=== PATIENT | male | born 1965 | race Two or more races ===

== ENCOUNTER 2018-04-24 15:15 | Emergency (ER) | payer SELFPAY ==
[~2018-04-24] VITALS: Ht 170.2 cm; Wt 87.0 kg
[2018-04-24 15:25] VITALS: BP 108/65
== END 2018-04-24 19:20 | disposition left against medical advice (07) ==
LOC: ER 15:15
DX: Z53.21 Procedure and treatment not carried out due to patient leaving prior to being seen by health care provider (principal)

== ENCOUNTER 2019-08-24 15:03 | Emergency (ER) | payer SELFPAY ==
[~2019-08-24] VITALS: Ht 177.8 cm; Wt 75.0 kg
[2019-08-24] MEDS ORDERED: KETOROLAC 30MG/ML VIAL IM ONE (16:45)
[2019-08-25 13:51] VITALS: BP 118/76
== END 2019-08-25 14:44 | disposition home or self-care (01) ==
LOC: ER 15:03
DX: M54.30 Sciatica, unspecified side (principal); E11.9 Type 2 diabetes mellitus without complications; F32.9 Major depressive disorder, single episode, unspecified; F12.10 Cannabis abuse, uncomplicated; M54.32 Sciatica, left side; F10.21 Alcohol dependence, in remission; Z59.0 Homelessness
CPT/HCPCS: 96372; 99285; J1885

== ENCOUNTER 2020-07-12 01:05 | Emergency (ER) | payer MEDICAID ==
[~2020-07-12] VITALS: Ht 170.2 cm; Wt 77.0 kg
[2020-07-12 01:52] LABS: EOSINOPHILS % 2.5 % (0.0-5.0); HEMATOCRIT. 44.8 % (42.0-52.0); HEMOGLOBIN. 14.9 g/dL (14.0-18.0); LYMPHOCYTES % 28.2 % (20.0-50.0); MEAN CORPUSCULAR VOLUME 90.5 fL (80.0-94.0); MEAN PLATELET VOLUME 8.2 fl (7.4-10.4); MONOCYTES % 10.6 % (2.0-8.0); NEUTROPHILS % 57.7 % (40.0-76.0); PLATELET 341 x1000/uL (130-400); RED BLOOD CELL COUNT 4.96 mill/uL (4.7-6.1); RED CELL DISTRIBUTION WIDTH 13.7 % (11.6-14.6)
[2020-07-12 01:59] LABS: CHLORIDE 107 mEq/L (98-107)
[2020-07-12 03:58] LABS: ETHANOL BLOOD 119 mg/dL
[2020-07-12] MEDS ORDERED: NALO4SPR BOTHNSTRLS (04:49)
[2020-07-12 05:13] VITALS: BP 150/80
== END 2020-07-12 05:39 | disposition home or self-care (01) ==
LOC: ER 01:05
DX: F16.10 Hallucinogen abuse, uncomplicated (principal); F10.229 Alcohol dependence with intoxication, unspecified; F17.210 Nicotine dependence, cigarettes, uncomplicated; Y90.5 Blood alcohol level of 100-119 mg/100 ml
CPT/HCPCS: 36415; 80053; 80307; 80320; 80329; 85025; 93005; 99285; G0480